=== PATIENT | female | born 1945 | race Hispanic/Latino ===

== ENCOUNTER 2020-04-18 15:32 | Emergency (ER) | payer MEDICARE ==
[2020-04-18 16:54] LABS: Blood Urea Nitrogen 14 mg/dL (7-17); Calcium 8.9 mg/dL (8.4-10.2); Hemolysis Index 10
[2020-04-18 17:06] LABS: INR 0.93 (0.87-1.13)
--- NOTE | 2020-04-18 17:06 | Cat Scan Report ---
CT head/brain wo con INDICATION: neuro deficits <6hrs or sx present upon awakening. TECHNIQUE: Routine CT head. All CT scans at this location are performed using CT dose reduction for A TANA by means of automated exposure control. COMPARISON: None. FINDINGS: Intracranial: Silver-white matter differentiation is maintained. No intracranial hemorrhage. No extra a xial collection.. No hydrocephalus. No herniation. Sinuses: Mucosal thickening and frothy secretions seen within the right sphenoid sinus. Minimal opaci fication of the right mastoid air cells.. Orbits: Globes are intact. Calvarium: No acute fracture. IMPRESSION: 1. No evidence for acute infarction. No intracranial hemorrhage. 2. Frothy secretions in the sphenoid sinus can be seen in the setting of acute sinusitis. Signer Name: Titi Burns MD Signed: 04/18/2020 5:02 PM Workstation Name: [id number]
[2020-04-18 17:07] LABS: Partial Thromboplastin Time 27.2 Sec. (24.2-36.6)
[2020-04-18 17:12] LABS: Basophils % (Auto) 0.2 % (0.0-1.8); Eosinophils # (Auto) 0.1 K/mm3 (0.0-0.4); Eosinophils % (Auto) 0.8 % (0.0-4.3); Hematocrit 35.1 % (30.3-42.9); Hemoglobin 11.4 gm/dl (10.1-14.3); Lymphocytes # (Auto) 2.1 K/mm3 (1.2-5.4); Lymphocytes % (Auto) 25.4 % (13.4-35.0); Mean Corpuscular HGB Conc 32 % (30-34); Mean Corpuscular Volume 90 fl (79-97); Monocytes # (Auto) 0.6 K/mm3 (0.0-0.8); Monocytes % (Auto) 6.9 % (0.0-7.3); Platelet Count 128 K/mm3 (140-440); Red Blood Count 3.88 M/mm3 (3.65-5.03); Red Cell Distribution Width 15.9 % (13.2-15.2)
[2020-04-18 17:16] LABS: BUN/Creatinine Ratio 20
--- NOTE | 2020-04-18 18:39 | History and Physical Report ---
History of Present Illness Date of examination: 04/18/20 Medications and Allergies Allergies Allergy/AdvReac Type Severity Reaction Status Date / Time No Known Allergies Allergy Verified 11/05/13 10:07 Home Medications Medication Instructions Recorded Confirmed Last Taken Type ALPRAZolam [Alprazolam] 1 tab PO BID 11/02/13 01/21/14 01/20/14 21:00 History Baclofen 1 tab PO HS 11/02/13 01/21/14 01/20/14 21:00 History Duloxetine HCl [Cymbalta] 1 tab PO DAILY 11/02/13 01/21/14 01/08/14 09:00 History Esomeprazole Magnesium [Nexium] 1 tab PO DAILY 11/02/13 01/21/14 01/21/14 07:00 History Ezetimibe [Zetia] 1 tab PO DAILY 11/02/13 01/21/14 01/11/14 09:00 History HYDROcodone/ACETAMINOPHEN 1 tab PO PRN PRN 11/02/13 01/21/14 01/19/14 09:00 History [Hydrocodon-Acetaminoph 7.5-325] Insulin Aspart (Nf) [NovoLOG 1 - 12 units SC AC PRN 11/02/13 01/21/14 01/19/14 09:00 History Flexpen] Insulin Detemir [Levemir Flexpen] 40 units SC HS 11/02/13 01/21/14 01/20/14 21:00 History Metoclopramide HCl [Reglan] 1 tab PO DAILY 11/02/13 01/21/14 01/20/14 21:00 History Pregabalin [Lyrica] 1 tab PO DAILY 11/02/13 01/21/14 01/08/14 09:00 History amLODIPine [Norvasc] 1 tab PO DAILY 11/02/13 01/21/14 01/21/14 07:00 History metFORMIN [Glucophage] 1,000 mg PO BID 11/02/13 01/21/14 01/08/14 09:00 History traZODone [Desyrel] 1 tab PO DAILY 11/02/13 01/21/14 01/20/14 21:00 History Promethazine [Phenergan] 25 mg PO Q6H PRN #20 tablet 02/12/14 Unknown Rx Sulfamethoxazole/Trimethoprim 1 each PO BID #14 tablet 02/12/14 Unknown Rx [Bactrim Ds] Exam - Constitutional Vitals: Temp Pulse Resp BP Pulse Ox 98.9 F 86 20 133/62 100 04/18/20 15:51 04/18/20 15:51 04/18/20 15:51 04/18/20 15:51 04/18/20 15:51 HEART Score - HEART Score Troponin: Troponin T < 0.010 ng/mL (0.00-0.029) 04/18/20 15:53 Results - Labs CBC & Chem 7: 04/18/20 15:53 04/18/20 15:53 Labs: Laboratory Last Values WBC 8.2 K/mm3 (4.5-11.0) 04/18/20 15:53 RBC 3.88 M/mm3 (3.65-5.03) 04/18/20 15:53 Hgb 11.4 gm/dl (10.1-14.3) 04/18/20 15:53 Hct 35.1 % (30.3-42.9) 04/18/20 15:53 MCV 90 fl (79-97) 04/18/20 15:53 MCH 29 pg (28-32) 04/18/20 15:53 MCHC 32 % (30-34) 04/18/20 15:53 RDW 15.9 % (13.2-15.2) H 04/18/20 15:53 Plt Count 128 K/mm3 (140-440) L 04/18/20 15:53 Lymph % (Auto) 25.4 % (13.4-35.0) 04/18/20 15:53 Levy % (Auto) 6.9 % (0.0-7.3) 04/18/20 15:53 Eos % (Auto) 0.8 % (0.0-4.3) 04/18/20 15:53 Baso % (Auto) 0.2 % (0.0-1.8) 04/18/20 15:53 Lymph # (Auto) 2.1 K/mm3 (1.2-5.4) 04/18/20 15:53 Levy # (Auto) 0.6 K/mm3 (0.0-0.8) 04/18/20 15:53 Eos # (Auto) 0.1 K/mm3 (0.0-0.4) 04/18/20 15:53 Baso # (Auto) 0.0 K/mm3 (0.0-0.1) 04/18/20 15:53 Seg Neutrophils % 66.7 % (40.0-70.0) 04/18/20 15:53 Seg Neutrophils # 5.5 K/mm3 (1.8-7.7) 04/18/20 15:53 PT 12.6 Sec. (12.2-14.9) 04/18/20 16:27 INR 0.93 (0.87-1.13) 04/18/20 16:27 APTT 27.2 Sec. (24.2-36.6) 04/18/20 16:27 Thrombin Time 16.4 Sec. (15.1-19.6) 04/18/20 16:27 Sodium 140 mmol/L (137-145) 04/18/20 15:53 Potassium 4.2 mmol/L (3.6-5.0) 04/18/20 15:53 Chloride 102.7 mmol/L (98-107) 04/18/20 15:53 Carbon Dioxide 27 mmol/L (22-30) 04/18/20 15:53 Anion Gap 15 mmol/L 04/18/20 15:53 BUN 14 mg/dL (7-17) 04/18/20 15:53 Creatinine 0.7 mg/dL (0.6-1.2) 04/18/20 15:53 Estimated GFR > 60 ml/min 04/18/20 15:53 BUN/Creatinine Ratio 20 % 04/18/20 15:53 Glucose 190 mg/dL (65-100) H 04/18/20 15:53 POC Glucose 173 mg/dL (70-105) H 04/18/20 16:22 Calcium 8.9 mg/dL (8.4-10.2) 04/18/20 15:53 Troponin T < 0.010 ng/mL (0.00-0.029) 04/18/20 15:53
--- NOTE | 2020-04-18 18:54 | Emergency Department Report ---
HPI - General Chief Complaint: Neuro Symptoms/Deficit Time Seen by Provider: 04/18/20 18:16 - HPI HPI: This is a 74-year-old female who presents to the emergency department with a complaint of some generalized weakness, left sided paresthesias that she de scribes as a "creepy crawly" sensation since waking up this morning. Patient says that she checked her blood pressure at home and it was low with a systolic in the low 90s. Patient had some blurry vision at that time that has since resolved. She denies any headache, slurred speech, chest pain, shortness of breath. She has a past medical history of rheumatoid arthritis, fibromyalgia, previous DVT, diabetes, migraine headaches, hypertension. Patient has not taken anything for symptoms prior to presentation. Primary care physician is Dr. Nagy. Dr. Nagy saw this patient both in the waiting room and in the main emergency department. ED Past Medical Hx - Past Medical History Previous Medical History?: Yes Hx Hypertension: Yes Hx Heart Attack/AMI: No Hx Congestive Heart Failure: No Hx Diabetes: Yes Hx Deep Vein Thrombosis: Yes (07/31/09 LEFT LEG) Hx Pulmonary Embolism: No Hx GERD: Yes Hx Liver Disease: No Hx Renal Disease: No Hx Arthritis: Yes Hx Headaches / Migraines: Yes (MIGRAINES) Hx Kidney Stones: Yes Hx Asthma: No Hx COPD: No Hx Tuberculosis: No Hx HIV: No - Surgical History Hx Coronary Stent: No Hx Open Heart Surgery: No Hx Pacemaker: No Hx Internal Defibrillator: No Hx Cholecystectomy: No Hx Appendectomy: No Hx Breast Surgery: No - Social History Smoking Status: Never Smoker Substance Use Type: None - Medications Home Medications: Home Medications Medication Instructions Recorded Confirmed Last Taken Type ALPRAZolam [Alprazolam] 1 tab PO BID 11/02/13 01/21/14 01/20/14 21:00 History Baclofen 1 tab PO HS 11/02/13 01/21/14 01/20/14 21:00 History Duloxetine HCl [Cymbalta] 1 tab PO DAILY 11/02/13 01/21/14 01/08/14 09:00 History Esomeprazole Magnesium [Nexium] 1 tab PO DAILY 11/02/13 01/21/14 01/21/14 07:00 History Ezetimibe [Zetia] 1 tab PO DAILY 11/02/13 01/21/1401/11/14 09:00 History HYDROcodone/ACETAMINOPHEN 1 tab PO PRN PRN 11/02/13 01/21/14 01/19/14 09:00 History [Hydrocodon-Acetaminoph 7.5-325] Insulin Aspart (Nf) [NovoLOG 1 - 12 units SC AC PRN 11/02/13 01/21/14 01/19/14 09:00 History Flexpen] Insulin Detemir [Levemir Flexpen] 40 units SC HS 11/02/13 01/21/14 01/20/14 21:00 History Metoclopramide HCl [Reglan] 1 tab PO DAILY 11/02/13 01/21/14 01/20/14 21:00 History Pregabalin [Lyrica] 1 tab PO DAILY 11/02/13 01/21/14 01/08/14 09:00 History amLODIPine [Norvasc] 1 tab PO DAILY 11/02/13 01/21/14 01/21/14 07:00 History metFORMIN [Glucophage] 1,000 mg PO BID 11/02/13 01/21/14 01/08/14 09:00 History traZODone [Desyrel] 1 tab PO DAILY 11/02/13 01/21/14 01/20/14 21:00 History Promethazine [Phenergan] 25 mg PO Q6H PRN #20 tablet 02/12/14 Unknown Rx Sulfamethoxazole/Trimethoprim 1 each PO BID #14 tablet 02/12/14 Unknown Rx [Bactrim Ds] ED Review of Systems ROS: Stated complaint: POSS TIA Other details as noted in HPI Comment: All other systems reviewed and negative Constitutional: denies: chills, fever Eyes: denies: eye pain, vision change ENT: denies: ear pain, throat pain Respiratory: denies: cough, shortness of breath Cardiovascular: denies: chest pain, palpitations Gastrointestinal: denies: abdominal pain, vomiting Genitourinary: denies: dysuria, discharge Musculoskeletal: back pain (chronic). denies: joint swelling Skin: denies: rash, lesions Neurological: numbness, paresthesias. denies: headache Physical Exam - Physical Exam Vital Signs: Vital Signs 04/18/20 15:51 Temperature 98.9 F Pulse Rate 86 Respiratory 20 Rate Blood Pressure 133/62 [Right] O2 Sat by Pulse 100 Oximetry Physical Exam: GENERAL: The patient is well-developed well-nourished. HENT: Normocephalic. Atraumatic. Patient has moist mucous membranes. EYES: Extraocular motions are intact. No nystagmus. NECK: Supple. Trachea is midline. CHEST/LUNGS: Clear to auscultation. There is no respiratory distress noted. HEART/CARDIOVASCULAR: Regular. There is no tachycardia. There is no murmur. ABDOMEN: Abdomen is soft, nontender. Patient has normal bowel sounds. There is no abdominal distention. SKIN: Skin is warm and dry. Patient has multiple areas of ecchymosis to the bilateral upper and lower extremities. NEURO: The patient is awake, alert, and oriented. The patient is cooperative. The patient has no focal neurologic deficits. Normal speech. Cranial nerves II through XII grossly intact. No pronator drift. No dysmetria. No facial asymmetry. MUSCULOSKELETAL: There is no tenderness or deformity. There is no limitation range of motion. ED Course Vital Signs 04/18/20 15:51 Temperature 98.9 F Pulse Rate 86 Respiratory 20 Rate Blood Pressure 133/62 [Right] O2 Sat by Pulse 100 Oximetry - Reevaluation(s) Reevaluation #1: 04/18/20 19:19 Lab Results 04/18/20 04/18/20 04/18/20 Range/Units 15:53 15:53 16:22 WBC 8.2 (4.5-11.0) K/mm3 RBC 3.88 (3.65-5.03) M/mm3 Hgb 11.4 (10.1-14.3) gm/dl Hct 35.1 (30.3-42.9) % MCV 90 (79-97) fl MCH 29 (28-32) pg MCHC 32 (30-34) % RDW 15.9 H (13.2-15.2) % Plt Count 128 L (140-440) K/mm3 Lymph % (Auto) 25.4 (13.4-35.0) % [place] % (Auto) 6.9 (0.0-7.3) % Eos % (Auto) 0.8 (0.0-4.3) % Baso % (Auto) 0.2 (0.0-1.8) % Lymph # (Auto) 2.1 (1.2-5.4) K/mm3 [place] # (Auto) 0.6 (0.0-0.8) K/mm3 Eos # (Auto) 0.1 (0.0-0.4) K/mm3 Baso # (Auto) 0.0 (0.0-0.1) K/mm3 Seg Neutrophils % 66.7 (40.0-70.0) % Seg Neutrophils # 5.5 (1.8-7.7) K/mm3 PT (12.2-14.9) Sec. INR (0.87-1.13) APTT (24.2-36.6) Sec. Thrombin Time (15.1-19.6) Sec. Sodium 140 (137-145) mmol/L Potassium 4.2 (3.6-5.0) mmol/L Chloride 102.7 (98-107) mmol/L Carbon Dioxide 27 (22-30) mmol/L Anion Gap 15 mmol/L BUN 14 (7-17) mg/dL Creatinine 0.7 (0.6-1.2) mg/dL Estimated GFR > 60 ml/min BUN/Creatinine Ratio 20 % Glucose 190 H (65-100) mg/dL POC Glucose 173 H (70-105) mg/dL Calcium 8.9 (8.4-10.2) mg/dL Troponin T < 0.010 (0.00-0.029) ng/mL 04/18/20 04/18/20 Range/Units 16:27 16:27 WBC (4.5-11.0) K/mm3 RBC (3.65-5.03) M/mm3 Hgb (10.1-14.3) gm/dl Hct (30.3-42.9) % MCV (79-97) fl MCH (28-32) pg MCHC (30-34) % RDW (13.2-15.2) % Plt Count (140-440) K/mm3 Lymph % (Auto) (13.4-35.0) % [place] % (Auto) (0.0-7.3) % Eos % (Auto) (0.0-4.3) % Baso % (Auto) (0.0-1.8) % Lymph # (Auto) (1.2-5.4) K/mm3 [place] # (Auto) (0.0-0.8) K/mm3 Eos # (Auto) (0.0-0.4) K/mm3 Baso # (Auto) (0.0-0.1) K/mm3 Seg Neutrophils % (40.0-70.0) % Seg Neutrophils # (1.8-7.7) K/mm3 PT 12.6 (12.2-14.9) Sec. INR 0.93 (0.87-1.13) APTT 27.2 (24.2-36.6) Sec. Thrombin Time 16.4 (15.1-19.6) Sec. Sodium (137-145) mmol/L Potassium (3.6-5.0) mmol/L Chloride (98-107) mmol/L Carbon Dioxide (22-30) mmol/L Anion Gap mmol/L BUN (7-17) mg/dL Creatinine (0.6-1.2) mg/dL Estimated GFR ml/min BUN/Creatinine Ratio % Glucose (65-100) mg/dL POC Glucose (70-105) mg/dL Calcium (8.4-10.2) mg/dL Troponin T (0.00-0.029) ng/mL ED Medical Decision Making - Lab Data Result diagrams: 04/18/20 15:53 04/18/20 15:53 - EKG Data -: EKG Interpreted by Ga EKG shows normal: sinus rhythm, axis, intervals, QRS complexes, ST-T waves Rate: normal - EKG Data When compared to previous EKG there are: previous EKG unavailable Interpretation: normal EKG - Radiology Data Radiology results: report reviewed CT head/brain wo con INDICATION: neuro deficits <6hrs or sx present upon awakening. TECHNIQUE: Routine CT head. All CT scans at this location are performed using CT dose reduction for ALARA by means of automated exposure control. COMPARISON: None. FINDINGS: Intracranial: Silver-white matter differentiation is maintained. No intracranial hemorrhage. No extra axial collec tion.. No hydrocephalus. No herniation. Sinuses: Mucosal thickening and frothy secretions seen within the right sphenoid sinus. Minimal opacification of the right mastoid air cells.. Orbits: Globes are intact. Calvarium: No acute fracture. IMPRESSION: 1. No evidence for acute infarction. No intracranial hemorrhage. 2. Frothy secretions in the sphenoid sinus can be seen in the setting of acute sinusitis. - Medical Decision Making This patient presents to the emergency department with complaint of generalized weakness, and some left-sided abnormal sensation that she describes as something creeping and crawling on her skin. To me this sounds more like paresthesias. The patient also said that she had some blurry vision earlier that has since resolved. This all happened when the patient checked her blood pressure and it was found to be low, with a systolic in the 90s. The patient says that this is happened 1 time previously. At the time of my examination the patient is awake, alert, oriented, AAO x3. She does not have any focal, motor or sensory deficits and her cranial nerves are intact. When checking sensation, the patient denies that she has any numbness but just says that it still feels "weird" in comparison to the right side. She does not have any motor weakness. There is no facial asymmetry, dysarthria, aphasia, dysmetria. The patient has an NIH stroke scale of 0. EKG did not have any morphology consistent with ST elevation myocardial infarction or any dysrhythmia. She had a CT scan of the head that did not show any hemorrhage, large vessel occlusion, or any other acute process. Her vital signs have been reassuring throughout her ED course including being afebrile. Patient was seen ambulatory in the emergency depart ment and both appears and feels stable. The patient was seen by her primary care physician in the waiting room and once again in the main emergency department. [facility] She has been instructed to follow-up with her primary care physician in the next few days in his office, but to return to the closest emergency department with any return or worsening of her symptoms, or with any acute distress. She understands and agrees to plan. Critical Care Time: No Critical care attestation.: If time is entered above; I have spent that time in minutes in the direct care of this critically ill patient, excluding procedure time. ED Disposition Clinical Impression: Generalized weakness, Paresthesias Disposition: DC-01 TO HOME OR SELFCARE Is pt being admited?: No Condition: Stable Instructions: Paresthesia (ED), Weakness (ED) Additional Instructions: Please follow-up with your primary care physician in the next few days. Return to the emergency department with any worsening of your symptoms, new or concerning symptoms not addressed during this current emergency department visit, or with any acute distress. Referrals: DEXTER NAGY MD [Staff Physician] - 2-3 Days Time of Disposition: 18:58 - Assessment Assessment Interval: Baseline - Level of Consciousness 1a. Level of Consciousness: alert/keenly responsive - LOC Questions 1b. LOC Questions: answers both correctly - LOC Command 1c. LOC Commands: performs tasks correctly - Best Gaze 2. Best Gaze: normal - Visual 3. Visual: no visual loss - Facial Palsy 4. Facial Palsy: normal symmetrical movement - Motor Arm 5a. Motor Arm Left: no drift 5b. Motor Arm Right: no drift - Motor Leg 6a. Motor Leg Left: no drift 6b. Motor Leg Right: no drift - Limb Ataxia 7. Limb Ataxia: absent - Sensory 8. Sensory: normal - Best Language 9. Best Language: no aphasia - Dysarthria 10. Dysarthria: normal - Extinction and Inattention 11. Extinction/Inattention: no abnormality - Scoring Total Score: 0 Stroke Severity: No Stroke Symptoms
[2020-04-18 19:03] VITALS: BP 132/57
--- NOTE | 2020-04-18 19:12 | Event Note ---
Date: 04/18/20 74-year-old female well-known to me from the office comes in for vague complaints of generalized weakness left-sided numbness and low blood pressure. Patient shows me her blood pressure readings which were ranging between 90 and 60-1 . Work-up in the emergency room did not reveal anything her no focal deficits. CLOTH TESTER exam was normal. Patient had ecchymosis on the left lower extremity secondary to a fall about 8 days ago and there is complete work-up done at the [facility]. Patient had a chest CTA also at that time. Work-up today did not reveal any abnormalities and physical exam was normal. Discharge diagnosis presyncope More fluids follow-up in office in 1 week Patient has my direct number and she can reach me anytime.
== END 2020-04-18 19:03 | disposition home or self-care (01) ==
LOC: ED 15:32
DX: R53.1 Weakness (principal); R20.2 Paresthesia of skin; I10 Essential (primary) hypertension; E11.9 Type 2 diabetes mellitus without complications; K21.9 Gastro-esophageal reflux disease without esophagitis; G43.909 Migraine, unspecified, not intractable, without status migrainosus; M19.91 Primary osteoarthritis, unspecified site; Z87.442 Personal history of urinary calculi; Z79.4 Long term (current) use of insulin; Z79.899 Other long term (current) drug therapy
CPT/HCPCS: 36415; 70450; 80048; 82962; 84484; 85025; 85610; 85670; 85730; 93005